=== PATIENT | male | born 1965 | race Caucasian/White ===

== ENCOUNTER → 2024-07-28 | Outpatient (CLI) | payer OTHER, SELFPAY ==
[2024-07-28 10:37] LABS: Absolute Lymphocyte Count 2.68 X10^3/uL (0.83-4.51); Absolute Neutrophil Count 3.4 X10^3/uL (2.0-7.7); Basophil# 0.06 X10^3/uL; Basophil% 0.8 % (0-1); Eosinophil# 0.22 X10^3/uL; Eosinophils% 3.1 % (0-5); Hemoglobin 16.2 g/dL (13.0-16.5); Lymphocyte # 2.68 X10^3/ul (0.83-4.51); Lymphocyte % 37.7 % (19-41); Mean Corp Hgb Conc 33.8 g/dL (32-36); Mean Corpuscular Hgb 30.2 pg (27.0-32.0); Mean Corpuscular Volume 89.4 fL (80-94); Mean Platelet Vol. 8.9 fl (6.2-12.0); Monocyte# 0.73 X10^3/uL; Monocyte% 10.3 % (0-10); NRBC Flagged by Analyzer 0 % (0-5); Neutrophil % 47.8 % (47-70); Platelet Count 205 K/mm3 (150-450); RBC Distribution Width SD 38.9 fl (35.1-43.9); Red Blood Count 5.37 M/mm3 (4.6-6.2); White Blood Count 7.1 K/mm3 (4.4-11.0)
[2024-07-28 11:37] LABS: ALB/GLOB Ratio 0.9 RATIO (0.9-2.4); AST(SGOT) 21 U/L (15-37); Alanine Aminotransfer ALT/SGPT 39 U/L (16-61); Albumin, Serum 3.6 g/dL (3.2-5.0); Alkaline Phosphatase 125 U/L (45-117); Anion Gap 10 (5-15); BUN 15 mg/dL (7-18); BUN/Creat Ratio 15.7 RATIO (10-20); Calcium,Total 9.5 mg/dL (8.5-10.1); Chloride 103 mmol/L (98-107); Cholesterol 171 mg/dL (200); Creatinine, Serum 0.96 mg/dL (0.70-1.30); EST Glomerular Filtration Rate 85 mL/min (>60); Est Glom Filt Rate - Afr Amer 103 mL/min (>60); Glucose 336 mg/dL (74-106); High Density Lipoprotein 37 mg/dL; PSA,Total - Annual Screen 3.66 ng/mL (0.00-4.00); Potassium 4.1 mmol/L (3.5-5.1); Protein, Total 7.6 g/dL (6.4-8.2); Sodium Level 138 mmol/L (136-145); Triglycerides 428 mg/dL
[2024-07-28 11:56] LABS: Hemoglobin A1c 11.7 % (3.8-5.6)
== END | disposition home or self-care (01) ==
LOC: MFPLAB 08:57
PROVIDERS: PCP Family Medicine; Referring Provider Family Medicine; Visit Provider Family Medicine
DX: Z00.00 Encounter for general adult medical examination without abnormal findings (principal); Z13.1 Encounter for screening for diabetes mellitus; R53.83 Other fatigue; Z12.5 Encounter for screening for malignant neoplasm of prostate; Z13.220 Encounter for screening for lipoid disorders
CPT/HCPCS: 36415; 80053; 80061; 82306; 83036; 84153; 84443; 85025; G0103

== ENCOUNTER 2024-10-07 08:16 | Day surgery (SDC) | payer OTHER, SELFPAY ==
--- NOTE | 2024-10-01 11:24 | PAT.ANE_ITS ---
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 When Was Last Pacemaker Check QUESTION #4 FULL TEXT: You/Your Family Experience fever (hyperthermia) with Anesthesia Last Oral Intake Last Oral intake: Last Oral Intake NPO since Meds taken in AM with sips of water? Meds patient instructed to take am of surgery PONV PONV - medical billing associate: PONV - medical billing associate Female No 10/01/24 10:29 HX of Motion Sickness No 10/01/24 10:29 HX of N/V After Surgery No 10/01/24 10:29 Non-Smoker Yes 10/01/24 10:29 Duration of Surgery greater No 10/01/24 10:29 than 60 minutes Number of Risk Factors 1 10/01/24 10:29 PONV Score Low Risk 10/01/24 10:29 Height & Weight Height & Weight: Anesthesia: Height & Weight Height 5 ft 9 in 08/04/24 14:04 Respiratory Assessment Respiratory Assessment - medical billing associate: Respiratory Tract Infection Hx - medical billing associate Hx Respiratory Tract Infection No 10/01/24 10:29 STOP Sleep Apnea STOP Sleep Apnea - medical billing associate: STOP Sleep Apnea - medical billing associate Hx Hypertension No 10/01/24 10:29 Hx Sleep Apnea No 10/01/24 10:29 CPAP No 10/20/15 17:20 BIPAP Do you snore loudly (louder No 10/01/24 10:29 than talking or can be heard Do you often feel tired/ No 10/01/24 10:29 fatigued/ sleepy during daytime? Has anyone observed you stop No 10/01/24 10:29 breathing during sleep? STOP Results Negative 10/01/24 10:29 QUESTION #5 FULL TEXT : Do you snore loudly (louder than talking or can be heard through closed doors)? 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 Specify any problems Hx of Preganancy in last 3 N/A 10/01/24 10:29 Months Nurse Filling Out Transfusion VCHRISTIN 10/01/24 10:29 & Questions: Date: 10/01/24 10/01/24 10:29 Time: 10:30 10/01/24 10:29 Patient unable to answer at this time (ie. confused, unrespo /Reproduction History /Reproductive History - medical billing associate: /Reproductive Hx- medical billing associate Hx Now Gestational Age (in weeks): EDC: Hx Hx Para Hx Section SAB PFSH Medical History (Updated 10/01/24 @ 10:28 by Anna Hubbard) Wears glasses Cancer Depression Anxiety Diabetes Back pain Gastric reflux Non-smoker Chronic cough History of pain when walking History of edema Home Medications ?Medication ?Instructions ?Recorded ?Last Taken ?Type [id number]-zscpmsxqpmdwy-smeidlzw 250 1 tab PO Q4-6H PRN pain 08/04/24 Unknown History mg-250 mg-65 mg tablet (Excedrin Extra Strength) loratadine 10 mg tablet 10 mg PO QDAY PRN allergy sy mptoms 08/04/24 Unknown History omeprazole 20 mg capsule,delayed 20 mg PO DAILY PRN GE RD 08/04/24 Unknown History release biotin 1 mg capsule 1 mg PO DAILY 10/01/24 Unkno wn History calcium 500 mg (as 1 tab PO DAILY 10/01/24 Unkn own History carbonate)-vitamin D3 3.125 mcg (125 unit) tablet ginkgo biloba 40 mg tablet 40 mg PO DAILY 10/01/24 Unk nown History glipizide 5 mg tablet 5 mg PO BID 10/01/24 Unknown History metformin 500 mg tablet 500 mg PO BID 10/01/24 Unkno wn History multivitamin (Daily Multi-Vitamin 1 tab PO DAILY 10/01 Unknown History tablet) Allergy/AdvReac Type Severity Reaction Status Date / Time chicken derived Allergy swelling Verified 10/01/24 10:17 of throat Family History (Updated 08/04/24 @ 13:54 by Emilia Bustamante) Father Colon polyps Surgical History (Updated 10/01/24 @ 10:28 by Anna Hubbard) Hx of cholecystectomy Social History (Updated 08/04/24 @ 13:55 by Emilia Bustamante) household members: spouse current occupational status: employed Smoking Status: Former smoker substance use type: does not use Audit: Pertinent Findings Pertinent Findings EKG Perinent findings: 10/20/2015. Normal sinus rhythm with sinus arrhythmia 68 bpm. Recommendation Anesthesia Recommendation Anesthesia recommendation: OPTIMIZED for anesthesia
[2024-10-07] VITALS (8 sets, daily range): BP systolic 86–118; BP diastolic 58–83; PULSE 63–72; RESP 14–18; TEMP 36.1–37; O2SAT 93–99; BMI 27.7
--- NOTE | 2024-10-07 09:07 | PRE.ANES_ITS ---
ASA Classification* ASA Classification ASA Classification: 2 Assessment & Plan Anesthesia* Anesthesia Assessment Anesthesia Assessment: Discussed sedation and/or anesthesia options, risks, benefits, and alternatives with patient/parents/legal guardian/POA. Questions invited. The patient/parents/legal guardian/POA seems to understand and agrees to proceed with anesthesia plan. Reviewed the physical assessment, medical history, allergy history and patient home medications list prior to surgery/procedure/anesthetic and documented any changes. Performed airway and anesthesia risk assessments. Anesthesia Type Anesthesia Type: MAC History Source History Obtained from:: Patient and Chart Anesthesia Focused Assessment* Temperature: 97.2 F Pulse Rate: 69 Blood Pressure: 118/83 Respiratory Rate: 16 Pulse Ox: 97 Oxygen Delivery Method: Room Air Airway Assessment Mouth opens: >3 cm Mallampati Score: III Teeth Condition: Caps/Crowns (Patient has several Crowns. They Are Tight.) and Chipped/Broken (Multiple chipped teeth.) Neck Range of motion (ROM): Full ROM Focused Labs Anesthesia Preop lab: CBC WBC 7.1 K/mm3 (4.4-11.0) 07/28/24 08:58 07/28/24 RBC 5.37 M/mm3 (4.6-6.2) 07/28/24 08:58 07/28/24 Hgb 16.2 g/dL (13.0-16.5) 07/28/24 08:58 07/28/24 Hct 48.0 % (40-54) 07/28/24 08:58 07/28/24 Plt Count 205 K/mm3 (150-450) 07/28/24 08:58 07/28/24 CHEMISTRY Potassium 4.1 mmol/L (3.5-5.1) 07/28/24 08:58 07/28/24 Sodium 138 mmol/L (136-145) 07/28/24 08:58 07/28/24 BUN 15 mg/dL (7-18) 07/28/24 08:58 07/28/24 Creatinine 0.96 mg/dL (0.70-1.30) 07/28/24 08:58 07/28/24 Glucose 336 mg/dL (74-106) H 07/28/24 08:58 07/28/24 TSH 4.910 uIU/mL (0.358-3.740) H 07/28/24 08:58 COAG Pre-Assessment Diagnosis/Proposed Procedure Planned Operative Procedure(s): COLONOSCOPY-OA Anesthesia History 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 When Was Last Pacemaker Check QUESTION #4 FULL TEXT: You/Your Family Experience fever (hyperthermia) with Anesthesia Last Oral Intake Last Oral intake: Last Oral Intake NPO since 06:00 10/07/24 08:55 Meds taken in AM with sips of Yes 10/07/24 08:55 water? 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 Female No 10/01/24 10:29 HX of Motion Sickness No 10/01/24 10:29 HX of N/V After Surgery No 10/01/24 10:29 Non-Smoker Yes 10/01/24 10:29 Duration of Surgery greater No 10/01/24 10:29 than 60 minutes Number of Risk Factors 1 10/01/24 10:29 PONV Score Low Risk 10/01/24 10:29 Height & Weight Height & Weight: Anesthesia: Height & Weight Height 5 ft 9 in 10/07/24 08:55 Weight: 85.2 kg 10/07/24 08:55 Body Mass Index (BMI) 27.7 10/07/24 08:55 Respiratory Assessment Respiratory Assessment - laborer pole crew: Respiratory Tract Infection Hx - laborer pole crew Hx Respiratory Tract Infection No 10/01/24 10:29 STOP Sleep Apnea STOP Sleep Apnea - laborer pole crew: STOP Sleep Apnea - laborer pole crew Hx Hypertension No 10/01/24 10:29 Hx Sleep Apnea No 10/01/24 10:29 CPAP No 10/20/15 17:20 BIPAP Do you snore loudly (louder No 10/01/24 10:29 than talking or can be heard Do you often feel tired/ No 10/01/24 10:29 fatigued/ sleepy during daytime? Has anyone observed you stop No 10/01/24 10:29 breathing during sleep? STOP Results Negative 10/01/24 10:29 QUESTION #5 FULL TEXT : Do you snore loudly (louder than talking or can be heard through closed doors)? 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 Specify any problems Hx of Preganancy in last 3 N/A 10/01/24 10:29 Months Nurse Filling Out Transfusion VCHRISTIN 10/01/24 10:29 & Questions: Date: 10/01/24 10/01/24 10:29 Time: 10:30 10/01/24 10:29 Patient unable to answer at this time (ie. confused, unrespo /Reproduction History /Reproductive History - laborer pole crew: /Reproductive Hx- laborer pole crew Hx Now Gestational Age (in weeks): EDC: Hx Hx Para Hx Section SAB PFSH Medical History Wears glasses Cancer Depression Anxiety Diabetes Back pain Gastric reflux Non-smoker Chronic cough History of pain when walking History of edema Home Medications ?Medication ?Instructions ?Recorded ?Last Taken ?Type iewbueg-uczviexjpfkpj-gqjpbzhf 250 1 tab PO Q4-6H PRN pain 08/04/24 Unknown History mg-250 mg-65 mg tablet (Excedrin Extra Strength) loratadine 10 mg tablet 10 mg PO QDAY PRN allergy sy mptoms 08/04/24 10/02/24 History omeprazole 20 mg capsule,delayed 20 mg PO DAILY PRN GE RD 08/04/24 10/03/24 History release biotin 1 mg capsule 1 mg PO DAILY 10/01/2410/04 History calcium 500 mg (as 1 tab PO DAILY 10/01/24 Unkn own History carbonate)-vitamin D3 3.125 mcg (125 unit) tablet ginkgo biloba 40 mg tablet 40 mg PO DAILY 10/01/24 History glipizide 5 mg tablet 5 mg PO BID 10/01/24 5 History metformin 500 mg tablet 500 mg PO BID 10/01/2410/06 History multivitamin (Daily Multi-Vitamin 1 tab PO DAILY 10/0110/03/24 History tablet) acetaminophen 650 mg 325 mg PO Q12H PRN fever or pain 10/07/24 10/07/24 History tablet,extended release Allergy/AdvReac Type Severity Reaction Status Date / Time chicken derived Allergy swelling Verified 10/07/24 08:42 of throat Family History Father Colon polyps Surgical History Hx of cholecystectomy Social History household members: spouse current occupational status: employed Smoking Status: Former smoker substance use type: does not use Review of Systems (Anesthesia) ROS Narrative System reviewed and no additional complaints, except as documented.
--- NOTE | 2024-10-07 09:25 | H&P.OPEN ---
HPI - General HPI Narrative DANIEL ADHIKARI, is a 59 M who presents for screening colonoscopy. Patient has never had a colonoscopy in the past. He denies any abdominal pain or blood in the stool. He has family history of polyps in his father. [facility] Medical History Wears glasses Cancer Depression Anxiety Diabetes Back pain Gastric reflux Non-smoker Chronic cough History of pain when walking History of edema Home Medications ?Medication ?Instructions ?Recorded ?Last Taken ?Type djrprzk-dtkuclkkqjknj-zsneclps 250 1 tab PO Q4-6H PRN pain 08/04/24 Unknown History mg-250 mg-65 mg tablet (Excedrin Extra Strength) loratadine 10 mg tablet 10 mg PO QDAY PRN allergy symptoms 08/04/24 10/02/24 History omeprazole 20 mg capsule,delayed 20 mg PO DAILY PRN GERD 08/04/24 10/03/24 History release biotin 1 mg capsule 1 mg PO DAILY 10/01/24 10/04/24 History calcium 500 mg (as 1 tab PO DAILY 10/01/24 Unknown History carbonate)-vitamin D3 3.125 mcg (125 unit) tablet ginkgo biloba 40 mg tablet 40 mg PO DAILY 10/01/24 10/03/24 History glipizide 5 mg tablet 5 mg PO BID 10/01/24 10/04/24 History metformin 500 mg tablet 500 mg PO BID 10/01/24 10/06/24 History multivitamin (Daily Multi-Vitamin 1 tab PO DAILY 10/01/24 10/03/24 History tablet) acetaminophen 650 mg 325 mg PO Q12H PRN fever or pain 10/07/24 10/07/24 History tablet,extended release Allergy/AdvReac Type Severity Reaction Status Date / Time chicken derived Allergy swelling Verified 10/07/24 08:42 of throat Family History Father Colon polyps Surgical History Hx of cholecystectomy Social History household members: spouse current occupational status: employed Smoking Status: Former smoker substance use type: does not use Past Medical/Surgical History Planned Operation Planned Operative Procedure(s): COLONOSCOPY-OA S.O.S: No Previous Hospitalizations/Surgeries HX Hospitalizations: No Any Problems With Anesthesia: No You/Your Family Experience Fever (Hyperthermia) With Anes: No Cholinesterase deficiency: No Cardiovascular Hx Chest Pain within Last 2 months: No Hx of Irregular Heartbeat and/or Afib: No Hx Heart Attack: No Hx Congestive Heart Failure: No Hx Rheumatic Fever: No Hx Hypertension: No Hx Internal Defibrillator: No Hx Pacemaker: No Hx Cardiac Catheterization: No Hx Cardiac Surgery/Stents/Etc.: No Hx Stress Test: No Hx Pain in Legs when Walking/Leg Cramps: No Respiratory Chronic Cough: No HX of Shortness of Breath: No Hoarseness: No Hx Chronic Obstructive Pulmonary Disease (COPD): No Hx Asthma: No Hx Emphysema: No Hx Sleep Apnea: No CPAP: No Hx Respiratory Tract Infection/Cold (presently): No Do You Snore Loudly (louder than talking or can be heard): No Do You Often Feel Tired/ Fatigued/ Sleepy Dring Daytime?: No Has Anyone Observed You Stop Breathing During Sleep?: No Result (for STOP score): Negative Hx Smoking: No Smoking Status: Former smoker Gastrointestinal Controlled With Meds: Yes Hx Gastrointestinal Disorders: No Hx Gastrointestinal Bleed: No Hx Ulcer: No Hx Hiatal Hernia: No Difficulty Chewing/Swallowing: No Special diet followed at home: Yes (LO CARB, HIGH PROTEIN) Hx Unplanned Weight Loss of 20#: No HX Unplanned Weight Gain of 20#: No Neurological Hx Seizures: No HX Syncope/Blackout Spells/Unconsciousness: No Hx Transient Ischemic Attacks (TIA): No Hx Multiple Sclerosis: No Hx Parkinson's Disease: No Hx Head/Neck Injury: Yes Hx Headaches: Yes Hx Back Injury/Pain: No Recent Onset of Speech Difficulty: No Restless Legs: No Does patient have nerve stimulator: No Blood Disorder Hx Leukemia: No Bleeding Tendencies: No Hx Deep Vein Thrombosis: No Hx High Cholesterol: No Blood Transmitted Disease: No Hx Hepatitis: No Hx Cirrhosis: No Hx Anemia: No Hx Blood Disorders: No Reproduction Is Patient Lactating: No Hx Hysterectomy: No Hx Tubal Ligation: No Are You Post Menopause: No Genitourinary Hx Renal Disease: No Musculoskeletal Hx Arthritis: No Hx Rheumatoid Arthritis: No Hx Gout: No Recent Onset of an Orthopedic Problem: No Endocrine Hx Diabetes: No Thyroid Disease: No Hx Steroid Therapy: No Psycho/Social Hx Substance Use: No Hx Alcohol Use: Yes (SOCIAL) Hx Anxiety: No Hx Depression: No Mental Illness: No Hx Dementia: No Miscellaneous Hx Cancer: No Recent Exposure to Contagious Disease: No Hx of C-Diff: No Any Loose Teeth: No Allergies chicken derived Allergy (Verified 10/07/24 08:42) swelling of throat Discharge Is Pt Admitted From a Senior Living, or a Nursing Home: No After D/C, Where Do you Plan to Go: Return Home Vital Signs Vital Signs Vital Signs: 10/07/24 08:55 10/07/24 08:55 10/07/24 09:13 Temperature 97.2 F L 97.2 F L Temperature Source Temporal Pulse Rate 69 69 Respiratory Rate 16 16 Respiratory Pattern Normal Blood Pressure 118/83 H 118/83 H Blood Pressure Mean 94 Blood Pressure Source Monitor Blood Pressure Position Semi-Fowlers Blood Pressure Location Left Arm Pulse Ox 97 97 Oxygen Delivery Method Room Air Room Air Weight Weight: 187 lb 13.341 oz Body Mass Index (BMI) 27.7 Physical Exam Const alert and oriented x3 HEENT normocephalic Eyes PERRL Resp normal respiratory effort and normal air movement Cardio regular rate and regular rhythm GI soft to palpation, non-tender and non-distended Extremity normal to inspection Assessment & Plan Assessment/Plan (1) Encounter for screening for malignant neoplasm of colon: PLAN: I explained endoscopy in detail to the patient. I explained the risks including but not limited to stroke or heart attack with anesthesia, perforation of the GI tract, bleeding, infection. I explained that any of these could necessitate further emergency surgery. The patient understands and all questions were answered sufficiently. The patient wishes to proceed with procedure. Osmar Jones MD Pager: [facility] [address] [place] [address], [address] [place] [address] Office: Surgery Risks - Colonoscopy Risks Include but are not Limited To: Risks include but are not limited to: Bleeding, perforation requiring further surgery, inability to complete colonoscopy requiring barium enema.
--- NOTE | 2024-10-07 09:46 | PCM.POST.ANE ---
Anesthesia: Postop Eval I Current Vital Signs Temperature: 97 F Pulse Rate: 64 Blood Pressure: 94/58 Respiratory Rate: 14 Pulse Ox: 98 Oxygen Delivery Method: Room Air Assessment Airway patent: Yes Spontaneous unlabored respirations: Yes Mental status: Awake nausea: No Vomiting: No Anesthesia Complication: No Fluid Hydration Crystalloid volume administer (ml): 10 Total IV fluid infused: 10 Progress Note Anesthesia document: Postop Eval 1 completed: Yes
--- NOTE | 2024-10-07 09:47 | OP.COLON_ITS ---
Patient Name: Elbert Thurman Procedure Date: 10/07/2024 9:28 AM Date of : 1965 Age: 59 Procedure: Colonoscopy Indications: Screening for colorectal malignant neoplasm Providers: Osmar Jones MD Referring MD: Christi Hou Md Medicines: Propofol per Anesthesia Patient Profile: This is a 59 year old male. Refer to note in patient chart for documentation of history and physical. Last Colonoscopy: none. The patient's first colonoscopy is today. Complications: No immediate complications. Procedure: Pre-Anesthesia Assessment: - Prior to the procedure, a History and Physical was performed, and patient medications and allergies were reviewed. The patient's tolerance of previous anesthesia was also reviewed. The risks and benefits of the procedure and the sedation options and risks were discussed with the patient. All questions were answered, and informed consent was obtained. Prior Anticoagulants: The patient has taken no anticoagulant or antiplatelet agents. After reviewing the risks and benefits, the patient was deemed in satisfactory condition to undergo the procedure. After I obtained informed consent, the scope was passed under direct vision. Throughout the procedure, the patient's blood pressure, pulse, and oxygen saturations were monitored continuously. The pediatric colonoscope was introduced through the anus and advanced to the cecum, identified by appendiceal orifice and ileocecal valve. The colonoscopy was performed without difficulty. The patient tolerated the procedure well. The quality of the bowel preparation was good. The ileocecal valve, appendiceal orifice, and rectum were photographed. Scope In: 9:35:02 AM Scope Withdrawal Time 0 hours 4 minutes 45 seconds Scope Out: 9:44:25 AM Total Procedure Duration Time 0 hours 9 minutes 23 seconds Findings: The entire examined colon appeared normal on direct and retroflexion views. Impression: - The entire examined colon is normal on direct and retroflexion views. - No specimens collected. Recommendation: - Discharge patient to home. - Resume previous diet. - Continue present medications. - Repeat colonoscopy in 10 years for screening purposes. Procedure Code(s): --- Professional --- 43447, Colonoscopy, flexible; diagnostic, including collection of specimen(s) by brushing or washing, when performed (separate procedure) Diagnosis Code(s): --- Professional --- Z12.11, Encounter for screening for malignant neoplasm of colon CPT copyright 2021 [employer]. All rights reserved. The codes documented in this report are preliminary and upon craft worker review may be revised to meet current compliance requirements. Osmar Jones MD 10/07/2024 9:46:25 AM This report has been signed electronically. Number of Addenda: 0 Note Initiated On: 10/07/2024 9:28 AM
--- NOTE | 2024-10-07 09:47 | OP.CCLET_ITS ---
10/07/2024 Chrisit Hou Md Re : Colonoscopy procedure for Elbert Thurman Dear Savi This procedure was performed on Monday, October 07, 2024. My impressions and recommendations are as follows: Impressions : - The entire examined colon is normal on direct and retroflexion views. - No specimens collected. Recommendations : - Discharge patient to home. - Resume previous diet. - Continue present medications. - Repeat colonoscopy in 10 years for screening purposes. My findings are described in the full procedure note, which is enclosed. If I can be of further assistance, please feel free to contact me at Doctor phone number(s): , Work: . Sincerely, Osmar Jones MD 10/07/2024 9:46:25 AM This report has been signed electronically.
[2024-10-07 11:47] LABS: Bedside Glucose 119 mg/dL (74-106)
--- NOTE | 2024-10-07 11:53 | POSTOPAN2_ITS ---
Anesthesia Postop Eval I Sum Postop Eval Completion status Anesthesia document: Postop Eval 1 completed: Yes Anesthesia Postop Eval I Summary Anesthesia Postop Eval I Summary: Anesthesia Postop Eval I: Assessment Summary Airway patent Yes 10/07/24 09:50 [email or web address] Spontaneous unlabored Yes 10/07/24 09:50 [email or web address] [email or web address] respirations Mental status Awake 10/07/24 09:50 [email or web address] [email or web address] nausea No 10/07/24 09:50 [email or web address] Vomiting No 10/07/24 09:50 [email or web address] Anesthesia Postop Eval I: Fluid Summary Crystalloid volume administer 10 10/07/24 09:50 [email or web address] (ml) Colloids volume administered ( ml) Blood Product volume administered (ml) Total IV fluid infused 10 10/07/24 09:50 [email or web address] Anesthesia Postop Eval I: Summary Notes Anesthesia Complication No 10/07/24 09:50 [email or web address] Anesthesia Complication Comment: Post-operative progress note Anesthesia: Postop Eval II Evaluation Mental status: Awake and Calm Pain Level: 0 nausea: No Vomiting: No Complications Anesthesia Complication: No
--- NOTE | 2024-10-07 11:53 | PCM.POSTANE2 ---
Anesthesia Postop Eval I Sum Postop Eval Completion status Anesthesia document: Postop Eval 1 completed: Yes Anesthesia Postop Eval I Summary Anesthesia Postop Eval I Summary: Anesthesia Postop Eval I: Assessment Summary Airway patent Yes 10/07/24 09:50 [email or web address] Spontaneous unlabored Yes 10/07/24 09:50 DELIMBER [email or web address] respirations Mental status Awake 10/07/24 09:50 DELIMBER [email or web address] nausea No 10/07/24 09:50 DELIMBER [email or web address].[email or web address] Vomiting No 10/07/24 09:50 DELIMBER [email or web address].[email or web address] Anesthesia Postop Eval I: Fluid Summary Crystalloid volume administer 10 10/07/24 09:50 [email or web address] [email or web address] (ml) Colloids volume administered ( ml) Blood Product volume administered (ml) Total IV fluid infused 10 10/07/24 09:50 DELIMBER [email or web address].[email or web address] Anesthesia Postop Eval I: Summary Notes Anesthesia Complication No 10/07/24 09:50 DELIMBER [email or web address].[email or web address] Anesthesia Complication Comment: Post-operative progress note Anesthesia: Postop Eval II Evaluation Mental status: Awake and Calm Pain Level: 0 nausea: No Vomiting: No Complications Anesthesia Complication: No
== END 2024-10-07 10:26 | disposition home or self-care (01) ==
LOC: EN 08:17 → AC 08:19
PROVIDERS: PCP Family Medicine; Referring Provider Family Medicine; Visit Provider Surgery
PROC: 0DJD8ZZ Inspection of Lower Intestinal Tract, Via Natural or Artificial Opening Endoscopic (ICD-10-PCS; CPT 45378; principal; 2024-10-07 09:25)
DX: Z12.11 Encounter for screening for malignant neoplasm of colon (principal); E11.9 Type 2 diabetes mellitus without complications; K21.9 Gastro-esophageal reflux disease without esophagitis; Z79.84 Long term (current) use of oral hypoglycemic drugs; Z87.891 Personal history of nicotine dependence; Z90.49 Acquired absence of other specified parts of digestive tract
CPT/HCPCS: 45378; 82962; A4216

== ENCOUNTER → 2025-02-05 | Outpatient (CLI) | payer OTHER, SELFPAY ==
[2025-02-06 01:53] LABS: Creatinine, Urine (random) 88.90 mg/dL (39.00-259.00)
[2025-02-06 06:05] LABS: Microalbumin,Random Urine < 12.0 mg/L (<20 mg/L)
== END | disposition home or self-care (01) ==
LOC: LABSPEC 14:46
PROVIDERS: PCP Family Medicine; Referring Provider Family Medicine; Visit Provider Family Medicine
DX: K21.9 Gastro-esophageal reflux disease without esophagitis (principal)
CPT/HCPCS: 82043; 82570

== ENCOUNTER → 2025-02-12 | Outpatient (CLI) | payer OTHER, SELFPAY ==
[2025-02-12 16:14] LABS: Hematocrit 46.8 % (40-54); Hemoglobin 15.6 g/dL (13.0-16.5); Mean Corp Hgb Conc 33.3 g/dL (32-36); Mean Corpuscular Volume 89.5 fL (80-94); Mean Platelet Vol. 8.8 fl (6.2-12.0); Platelet Count 232 K/mm3 (150-450); RBC Distribution Width CV 12.7 % (11.6-14.6); RBC Distribution Width SD 41.6 fl (35.1-43.9); Red Blood Count 5.23 M/mm3 (4.6-6.2); White Blood Count 7.2 K/mm3 (4.4-11.0)
[2025-02-12 17:27] LABS: AST(SGOT) 23 U/L (<=37); Alanine Aminotransfer ALT/SGPT 21 U/L (<=46); Albumin, Serum 4.4 g/dL (3.4-4.8); Alkaline Phosphatase 76 U/L (40-129); Anion Gap 13 (5-15); BUN 14 mg/dL (4-19); BUN/Creat Ratio 14.1 RATIO (10-20); Calcium,Total 9.8 mg/dL (7.6-11.0); Carbon Dioxide 24.0 mmol/L (21.0-32.0); Chloride 103 mmol/L (98-108); Cholesterol 154 mg/dL (<=200); Globulin 3.1 g/dL (2.2-4.2); Glucose 100 mg/dL (70-99); Low Density Lipoprotein Calc. 87 mg/dL; Potassium 3.9 mmol/L (3.3-5.1); Triglycerides 105 mg/dL; Very Low Density Lipoprotein 21 mg/dL (5-40); Vitamin D,25 Hydroxy 34.3 ng/mL (30-100); cholesterol:hdl ratio screen 3.36
== END | disposition home or self-care (01) ==
LOC: MFPLAB 12:06
PROVIDERS: PCP Family Medicine; Referring Provider Family Medicine; Visit Provider Family Medicine
DX: E11.9 Type 2 diabetes mellitus without complications (principal); Z13.220 Encounter for screening for lipoid disorders
CPT/HCPCS: 36415; 80053; 80061; 82306; 83036; 85027